=== PATIENT | female | born 1935 ===

== ENCOUNTER → 2021-04-13 | Outpatient (REF) | payer MEDICARE, BC ==
[2021-04-13 17:33] LABS: COMPLEMENT C3 68 MG/DL (90-180); COMPLEMENT C4 25 MG/DL (10-40); MAGNESIUM LEVEL 1.8 MG/DL (1.8-2.4); TOTAL PROTEIN 6.9 GM/DL (6.4-8.2)
[2021-04-13 17:51] LABS: HEPATITIS B SURFACE ANTIBODY NEGATIVE (POSITIVE)
[2021-04-13 18:02] LABS: HEPATITIS B SURFACE ANTIGEN NEGATIVE (NEGATIVE)
[2021-04-13 18:25] LABS: HEPATITIS B CORE ANTIBODY IGM NEGATIVE (NEGATIVE)
== END ==
LOC: M LABDRWAD 16:45
PROVIDERS: ATTEND Internal Medicine Nephrology
DX: R80.9 Proteinuria, unspecified (principal); N18.2 Chronic kidney disease, stage 2 (mild)

== ENCOUNTER → 2021-05-25 | Outpatient (REF) | payer MEDICARE, BC | LOC: M LAB REF 17:16 | PROVIDERS: ATTEND Internal Medicine Nephrology | DX: E87.6 Hypokalemia (principal) ==